=== PATIENT | female | born 1995 | race Caucasian/White ===

== ENCOUNTER 2020-10-29 08:36 | Outpatient (CLI) | payer SELFPAY | END 2020-10-29 08:37 | disposition home or self-care (01) | LOC: CHSLAB 08:38 | PROVIDERS: PCP Family Medicine; Visit Provider Obstetrics & Gynecology | DX: N91.2 Amenorrhea, unspecified (principal) | CPT/HCPCS: 36415; 84702 ==

== ENCOUNTER 2020-10-31 07:53 | Outpatient (CLI) | payer SELFPAY | END 2020-10-31 07:54 | disposition home or self-care (01) | LOC: CHSLAB 07:55 | PROVIDERS: PCP Family Medicine; Visit Provider Obstetrics & Gynecology | DX: N91.2 Amenorrhea, unspecified (principal); Z32.01 Encounter for pregnancy test, result positive | CPT/HCPCS: 36415; 84702 ==

== ENCOUNTER 2020-11-03 07:41 | Outpatient (CLI) | payer SELFPAY | END 2020-11-03 07:42 | disposition home or self-care (01) | PROVIDERS: PCP Family Medicine; Visit Provider Obstetrics & Gynecology | DX: N91.2 Amenorrhea, unspecified (principal); Z32.01 Encounter for pregnancy test, result positive | CPT/HCPCS: 36415; 84702 ==

== ENCOUNTER 2020-11-05 08:24 | Outpatient (CLI) | payer SELFPAY | END 2020-11-05 08:25 | disposition home or self-care (01) | LOC: CHSLAB 08:24 | PROVIDERS: PCP Family Medicine; Visit Provider Obstetrics & Gynecology | DX: Z32.01 Encounter for pregnancy test, result positive (principal) | CPT/HCPCS: 36415; 84702 ==

== ENCOUNTER 2021-04-09 08:07 | Outpatient (CLI) | payer SELFPAY ==
[2021-04-09 09:27] LABS: Basophils Absolute Auto 0.04 K/mm3 (0.00-0.10); Basophils Percent Auto 0.3 % (0.0-1.0); Eosinophils Absolute Auto 0.07 K/mm3 (0.02-0.50); Eosinophils Percent Auto 0.6 % (1.0-6.0); Hematocrit 36.1 % (35.0-49.0); Hemoglobin 11.9 g/dL (12.0-15.0); Immature Granulocyte Absolute 0.14 K/mm3 (0.00-0.00); Immature Granulocyte Percent A 1.2 % (0.0-0.0); Lymphocytes Absolute Auto 1.84 K/mm3 (1.10-4.50); Lymphocytes Percent Auto 15.4 % (18.0-42.0); Mean Corpuscular Hemoglobin 26.7 pg (27.0-31.0); Mean Corpuscular Volume 81.1 fL (78.0-102.0); Mean Platelet Volume 10.2 fl (9.2-11.8); Monocytes Absolute Auto 0.51 K/mm3 (0.10-0.90); Monocytes Percent Auto 4.3 % (2.0-11.0); Neutrophils Absolute Auto 9.4 K/mm3 (1.7-7.2); Neutrophils Percent Auto 78.2 % (50.0-70.0); Platelet Count Result 330 K/mm3 (150-420); Red Blood Count 4.45 M/mm3 (4.20-5.40); Red Cell Distribution Width 13.4 % (11.6-14.4)
[2021-04-09 09:59] LABS: HIV 1 P24 AG Negative (Negative); HIV 1/2 AB Negative (Negative)
[2021-04-09 11:58] LABS: Glucose 1 Hour PP 50gm Dose 172 mg/dL (70-130)
[2021-04-12 22:31] LABS: Treponema pallidum Ab FTA ABS Nonreactive (Nonreactive)
== END 2021-04-09 08:08 | disposition home or self-care (01) ==
LOC: CHSLAB 08:09
PROVIDERS: PCP Family Medicine; Visit Provider Advanced Practice Midwife
DX: Z36.9 Encounter for antenatal screening, unspecified (principal)
CPT/HCPCS: 36415; 82947; 85025; 86703; 86780; 86850; 86900; 86901

== ENCOUNTER 2021-04-14 07:19 | Outpatient (CLI) | payer SELFPAY ==
[2021-04-14 07:56] LABS: Glucose Fasting Gestational 88 mg/dL (>/=95)
[2021-04-14 09:15] LABS: Glucose 1 Hour Gest 171 mg/dL (70-130)
[2021-04-14 10:01] LABS: Glucose 2 Hour Gest 138 mg/dL (<155)
[2021-04-14 10:45] LABS: Glucose 3 Hour Gest 127 mg/dL (>/=140)
== END 2021-04-14 07:20 | disposition home or self-care (01) ==
LOC: CHSLAB 07:21
PROVIDERS: PCP Family Medicine; Visit Provider Advanced Practice Midwife
DX: O99.810 Abnormal glucose complicating pregnancy (principal)
CPT/HCPCS: 36415; 82951; 82952

== ENCOUNTER 2023-02-16 15:27 | Emergency (ER) | payer OTHER, SELFPAY ==
--- NOTE | ~2023-02-16 | XR_ITS ---
EXAMINATION: XR foot LT min 3V DATE: 02/16/2023 INDICATION: Left foot pain TECHNIQUE: Dorsoplantar, lateral, and 2 oblique views of the left foot were obtained. COMPARISON: None. FINDINGS: A tiny osseous fragment projects distal to the medial malleolus. No acute fracture of the f oot is identified. Tiny posterior and plantar calcaneal enthesophytes are noted. IMPRESSION: 1. No acute osseous abnormality of the foot. 2. Tiny avulsion fracture at the distal aspect of the medial malleolus. Reviewed, dictated and finalized at location A.
--- NOTE | ~2023-02-16 | XR_ITS ---
EXAMINATION: XR ankle LT min 3V DATE: 02/16/2023 INDICATION: Left ankle pain TECHNIQUE: Anteroposterior, lateral, mortise, and additional oblique view of the ankle were obtained. COMPARISON: None. FINDINGS: There is an acute, traumatic, closed, transverse avulsion fracture in the distal aspect of the medial malleolus. No additional fracture is identified. The ankle mortise is intact. There is ank le soft tissue swelling. IMPRESSION: 1. Avulsion fracture of the medial malleolus. Reviewed, dictated and finalized at location A.
== END 2023-02-16 16:54 | disposition home or self-care (01) ==
PROVIDERS: Emergency Provider Internal Medicine Critical Care Medicine; PCP Family Medicine
DX: S82.52XA Displaced fracture of medial malleolus of left tibia, initial encounter for closed fracture (principal); S93.402A Sprain of unspecified ligament of left ankle, initial encounter; X50.0XXA Overexertion from strenuous movement or load, initial encounter
CPT/HCPCS: 29515; 73610; 73630; 99284; L4350

== ENCOUNTER 2023-02-25 20:10 | Emergency (ER) | payer OTHER, SELFPAY ==
--- NOTE | 2023-02-25 20:12 | ED.NAVMDI ---
HPI - Nausea/Vomiting/Diarrhea General Stated complaint: Calf Pain Time Seen by Provider: 02/25/23 20:11 Related Data Home Medications Medication Instructions Recorded Confirmed omeprazole 20 mg tablet,delayed 20 mg PO DAILY 09/30/20 release Allergies Allergy/AdvReac Type Severity Reaction Status Date / Time No Known Allergies Allergy Verified 02/25/23 20:12 [facility] Past Medical History Medical History Chronic gastroesophageal reflux disease Surgical History Surgical History H/O dilation and curettage Social History Social History Smoking status: Never smoker Discharge Plan Discharge Prescriptions: No Action omeprazole 20 mg tablet,delayed release (DR/EC) 20 mg PO DAILY cyclobenzaprine 10 mg tablet 10 mg PO TID Qty: 90 0RF sumatriptan succinate 50 mg tablet See Rx Instructions .ROUTE .COMPLEX Qty: 10 0RF Dose Instruction: TAKE 1 TAB BY MOUTH AT ONSET OF HEADACHE IF NO RELIEF MAY REPEAT IN 2 HOURS. MAX 4 TABS/24 HR Rx Instructions: TAKE 1 TAB BY MOUTH AT ONSET OF HEADACHE IF NO RELIEF MAY REPEAT IN 2 HOURS. MAX 4 TABS/24 HR amitriptyline 25 mg tablet See Rx Instructions .ROUTE .COMPLEX Qty: 90 0RF Dose Instruction: TAKE 1 TABLET BY MOUTH AT BEDTIME Rx Instructions: TAKE 1 TABLET BY MOUTH AT BEDTIME neomycin-polymyxin B-dexameth 3.5mg/mL-10,000 unit/mL-0.1 % drops,suspension 1 drp EACH EYE Q6H Qty: 5 0RF Follow-up/Referrals: Rakan Robert DO [Primary Care Provider] -
[2023-02-25 20:13] VITALS: BP 141/99; PULSE 94; RESP 18; TEMP 37.4; O2SAT 97
--- NOTE | 2023-02-25 20:28 | ED.EXTPRO ---
HPI - Extremity Problem General Chief complaint: Extremity Problem,Nontraumatic Stated complaint: Calf Pain Time Seen by Provider: 02/25/23 20:11 Source: patient and RN notes reviewed Mode of arrival: ambulatory ( with leg scooter) Limitations: no limitations History of Present Illness HPI Narrative: patient had an ankle fracture on the left several days ago then 3 days ago she began having some pain in her left calf. She is concerned about having a DVT and just wanted to get it checked out. MD Complaint: extremity pain Onset (ago): day(s) (3) Pain Consistency: constant Location: left and lower extremity Quality: aching and dull Radiation: none Relieving factors: rest Exacerbating factors: range of motion and palpation Associated symptoms: denies other symptoms Context: immobilization Related Data Home Medications Medication Instructions Recorded Confirmed omeprazole 20 mg tablet,delayed 20 mg PO DAILY 09/30/20 release Allergies Allergy/AdvReac Type Severity Reaction Status Date / Time No Known Allergies Allergy Verified 02/25/23 20:12 [facility] Past Medical History Medical History (Updated 02/25/23 @ 22:04 by Von Patino MD) Chronic gastroesophageal reflux disease GERD (gastroesophageal reflux disease) (09/09/15) Surgical History Surgical History H/O dilation and curettage Social History Social History Smoking status: Never smoker Exam Const: General: healthy appearing, no acute distress and alert Nutritional Appearance: well nourished Orientation/consciousness: patient oriented x3 Limitations: no limitations HENMT: Head: normal to inspection Ears: external ears normal Face/Nose/Sinus: Normal external nose present Face and sinus: normal facial exam Mouth: Yes moist mucous membranes Eyes: Conjunctivae: conjunctivae normal Pupils: Equal, round and reactive pupils present EOM: EOMs intact bilaterally Neck: Neck: normal visual inspection Resp: Effort & Inspection: normal respiratory effort Auscultation: clear to auscultation bilaterally Cardio: Rate: regular rate Rhythm: regular rhythm GI: GI Palp: Yes Soft to palpation and No Tenderness to palpation present (GI) Auscultation: normal bowel sounds Back/Spine/Pelvis: Cervical Spine: cervical ROM normal Thoracic/Lumbar Spine: thoraco-lumbar ROM normal Skin: General skin exam: normal color Rashes: no rashes Neuro: General: patient oriented x3, moves all extremities, no focal motor deficits and CN's II-XI intact bilaterally Speech: normal speech Extrem: General: normal exam except as noted and no clubbing, cyanosis or edema Left lower extremity: lower leg Details: tenderness Location: of the posterior calf; no erythema, no localized swelling, no palpable cords and no unusual warmth Psych: Mental Status: mental status grossly normal Affect: normal affect Attitude: cooperative Course Course Emergency Course: patient has an elevated D-dimer and some left leg calf tenderness. She has been immobile from a recent fracture. Her elevated D-dimer could be also due to her recent trauma which would cause it to be falsely elevated. I am going to give her a dose of Lovenox here in the ER and then she will get a venous Doppler of her leg tomorrow and contact her primary care physician for Eliquis if it is positive. Vital Signs Vital signs: Vital Signs Temperature 37.4 C 02/25/23 20:13 Pulse Rate 94 02/25/23 20:13 Respiratory Rate 18 02/25/23 20:13 Blood Pressure 141/99 H 02/25/23 20:13 Pulse Oximetry 97 02/25/23 20:13 Temperature 37.4 C 02/25/23 20:13 Pulse Rate 94 02/25/23 20:13 Respiratory Rate 18 02/25/23 20:13 Blood Pressure 141/99 H 02/25/23 20:13 Pulse Oximetry 97 02/25/23 20:13 MDM - Extremity (Nontraumatic) Differential Diagnosis Differential diagnosis: Likely cellulitis, superf
[2023-02-25 20:55] LABS: Basophils Absolute Auto 0.04 K/mm3 (0.00-0.10); Basophils Percent Auto 0.4 % (0.0-1.0); Eosinophils Absolute Auto 0.14 K/mm3 (0.02-0.50); Eosinophils Percent Auto 1.3 % (1.0-6.0); Hemoglobin 11.8 g/dL (12.0-15.0); Immature Granulocyte Absolute 0.02 K/mm3 (0.00-0.00); Immature Granulocyte Percent A 0.2 % (0.0-0.0); Lymphocytes Absolute Auto 3.05 K/mm3 (1.10-4.50); Lymphocytes Percent Auto 29.4 % (18.0-42.0); Mean Corpuscular HGB Conc 31.9 g/dL (32.0-36.0); Mean Corpuscular Hemoglobin 25.2 pg (27.0-31.0); Mean Corpuscular Volume 79.1 fL (78.0-102.0); Monocytes Absolute Auto 0.63 K/mm3 (0.10-0.90); Monocytes Percent Auto 6.1 % (2.0-11.0); Neutrophils Absolute Auto 6.5 K/mm3 (1.7-7.2); Neutrophils Percent Auto 62.6 % (50.0-70.0); Platelet Count Result 379 K/mm3 (150-420); Red Blood Count 4.68 M/mm3 (4.20-5.40); Red Cell Distribution Width 13.2 % (11.6-14.4); White Blood Count 10.4 K/mm3 (4.8-10.8)
[2023-02-25 21:08] LABS: INR 0.9; Partial Thromboplastin Time 30.3 SEC (23.90-30.70); Prothrombin Time 10.2 Seconds (9.50-12.10)
[2023-02-25] MEDS: ENOXAPARIN 100 MG/ML SYRINGE SUB-Q (22:17)
== END 2023-02-25 22:23 | disposition home or self-care (01) ==
PROVIDERS: Emergency Provider Emergency Medicine; PCP Family Medicine
DX: M79.605 Pain in left leg (principal)
CPT/HCPCS: 36415; 85025; 85380; 85610; 85730; 96372; 99283; J1650

== ENCOUNTER 2023-02-26 09:12 | Outpatient (CLI) | payer OTHER, SELFPAY ==
--- NOTE | ~2023-02-26 | US_ITS ---
US venous doppler [facility] DATE: 02/26/2023 09:40 INDICATION: Left leg pain. TECHNIQUE: Real-time and color flow imaging and Doppler analysis of the veins of the left lower ardon al body COMPARISON: None FINDINGS: The left greater saphenous vein is reportedly patent the technologist. There is spontaneous and phasic flow and normal augmentation and color flow signal of the left common femoral, femoral, p opliteal and posterior tibial veins. There is incomplete compression of left peroneal vein consistent with left peroneal deep venous throm bosis IMPRESSION: Left peroneal vein deep venous thrombosis Reviewed, dictated and finalized at Location [facility]. Reviewed, dictated and finalized at location A.
== END 2023-02-26 09:13 | disposition home or self-care (01) ==
PROVIDERS: PCP Family Medicine; Visit Provider Family Medicine
DX: I82.452 Acute embolism and thrombosis of left peroneal vein (principal)
CPT/HCPCS: 93971

== ENCOUNTER 2023-02-26 10:20 | Emergency (ER) | payer OTHER, SELFPAY ==
[2023-02-26 10:24] VITALS: BP 133/85; PULSE 99; RESP 16; TEMP 37.1; O2SAT 100
--- NOTE | 2023-02-26 10:51 | ED.EXTPRO ---
HPI - Extremity Problem General Chief complaint: Extremity Problem,Nontraumatic Stated complaint: L LEG +DVT Time Seen by Provider: 02/26/23 10:39 History of Present Illness HPI Narrative: 27-year-old female presents to the ER today for new diagnosis of left lower extremity DVT. She recently had an avulsion fracture and sprain of her left ankle. She noticed earlier this week that she was starting to get some pain in her left calf. She was seen in outside hospital emergency room yesterday evening and was noted to have an elevated dimer. She came to [place] this morning to have the venous Doppler study done and it was positive for DVT in the?Left peroneal vein. She does have a primary care provider that she will be able to follow-up with. Denies having any chest pain or shortness of breath. Related Data Home Medications Medication Instructions Recorded Confirmed omeprazole 20 mg tablet,delayed 20 mg PO DAILY 09/30/20 release Allergies Allergy/AdvReac Type Severity Reaction Status Date / Time No Known Allergies Allergy Verified 02/25/23 20:12 Review of Systems Review of Systems: CONSTITUTIONAL: Denies fever, chills, or sweats. EYES: Denies visual changes, redness, or discharge. ENT: Denies rhinorrhea, congestion, sore throat, or otalgia. CARDIOVASCULAR: Denies chest pain, palpitations, or edema. RESPIRATORY: Denies cough or dyspnea. GASTROINTESTINAL: Denies abdominal pain, nausea, vomiting, or diarrhea. GENITOURINARY: Denies dysuria or hematuria. SKIN: Denies rash or itching. MUSCULOSKELETAL: left calf pain NEUROLOGIC: Denies headache, numbness, dizziness, or weakness. PSYCHIATRIC: Denies anxiety or depression. PMFSH Past Medical History Medical History (Updated 02/26/23 @ 10:58 by Magalie Martinez APRN) Chronic gastroesophageal reflux disease GERD (gastroesophageal reflux disease) (09/09/15) Surgical History Surgical History H/O dilation and curettage Social History Social History Smoking status: Never smoker Exam Narrative: GENERAL: Well-appearing, well-nourished, and in no acute distress. HEAD: Normocephalic, atraumatic. EYES: PERRL NECK: Supple. No adenopathy or masses. No carotid bruits or JVD CHEST: Clear to auscultation. No respiratory distress. No wheezes rales or rhonchi HEART: Regular rate and rhythm. No murmur heard. Normal peripheral pulses. ABDOMEN: Soft, nontender, nondistended, normal active bowel sounds. EXTREMITIES: Normal range of motion. No edema. no erythema, left ankle splinted SKIN: Warm, dry, no rash. NEURO: No focal deficits. Alert and oriented x3. PSYCH: Normal mood and affect. Course Vital Signs Vital signs: Vital Signs Temperature 37.1 C 02/26/23 10:24 Pulse Rate 99 02/26/23 10:24 Respiratory Rate 16 02/26/23 10:24 Blood Pressure 133/85 02/26/23 10:24 Pulse Oximetry 100 02/26/23 10:24 Oxygen Delivery Room Air 02/26/23 10:24 Temperature 37.1 C 02/26/23 10:24 Pulse Rate 99 02/26/23 10:24 Respiratory Rate 16 02/26/23 10:24 Blood Pressure 133/85 02/26/23 10:24 Pulse Oximetry 100 02/26/23 10:24 Oxygen Delivery Room Air 02/26/23 10:24 MDM - Extremity (Nontraumatic) MDM Narrative Medical decision making narrative: Will start patient on oral eliquis. Risks/benefits discussed. She agrees to follow up with primary care for ongoing management of DVT. Discharge Plan Discharge Clinical Impression: Acute deep vein thrombosis (DVT) of left peroneal vein Patient Disposition: Home, Self-Care Condition: Stable Instructions: Antibiotic Form, Deep Vein Thrombosis (ED) Prescriptions: New apixaban 5 mg (74 tabs) tablets,dose pack See Rx Instructions .ROUTE .COMPLEX Qty: 74 0RF Rx Instructions: orally per package directions No Action omeprazole 20 mg tablet,delayed release
== END 2023-02-26 12:06 | disposition home or self-care (01) ==
PROVIDERS: Emergency Provider Nurse Practitioner Family; PCP Family Medicine
DX: I82.452 Acute embolism and thrombosis of left peroneal vein (principal); K21.9 Gastro-esophageal reflux disease without esophagitis
CPT/HCPCS: 93971; 99283

== ENCOUNTER 2023-04-21 11:31 | Outpatient (CLI) | payer OTHER, SELFPAY ==
[2023-04-21 12:18] LABS: Cholesterol 142 mg/dL (0-200); HDL Direct 41 mg/dL (40-60); LDL Cholesterol Calculated 86 mg/dL (<130); Triglycerides 77 mg/dL (0-150)
== END 2023-04-21 11:32 | disposition home or self-care (01) ==
LOC: CHSLAB 11:33
PROVIDERS: PCP Family Medicine; Visit Provider Family Medicine
DX: Z00.00 Encounter for general adult medical examination without abnormal findings (principal)
CPT/HCPCS: 36415; 80061

== ENCOUNTER 2023-08-03 12:46 | Outpatient (CLI) | payer OTHER, SELFPAY | END 2023-08-03 12:47 | disposition home or self-care (01) | LOC: CHSLAB 12:51 | PROVIDERS: PCP Family Medicine | DX: Z32.01 Encounter for pregnancy test, result positive (principal) | CPT/HCPCS: 36415; 84702 ==

== ENCOUNTER 2023-09-06 12:48 | Outpatient (CLI) | payer OTHER, SELFPAY ==
[2023-09-06 14:23] LABS: Basophils Absolute Auto 0.04 K/mm3 (0.00-0.10); Basophils Percent Auto 0.3 % (0.0-1.0); Eosinophils Absolute Auto 0.05 K/mm3 (0.02-0.50); Eosinophils Percent Auto 0.4 % (1.0-6.0); Hematocrit 36.8 % (35.0-49.0); Hemoglobin 12.5 g/dL (12.0-15.0); Immature Granulocyte Absolute 0.03 K/mm3 (0.00-0.00); Immature Granulocyte Percent A 0.3 % (0.0-0.0); Lymphocytes Absolute Auto 1.56 K/mm3 (1.10-4.50); Lymphocytes Percent Auto 13.2 % (18.0-42.0); Mean Corpuscular Hemoglobin 27.2 pg (27.0-31.0); Mean Platelet Volume 10.4 fl (9.2-11.8); Monocytes Absolute Auto 0.46 K/mm3 (0.10-0.90); Monocytes Percent Auto 3.9 % (2.0-11.0); Neutrophils Absolute Auto 9.7 K/mm3 (1.7-7.2); Neutrophils Percent Auto 81.9 % (50.0-70.0); Platelet Count Result 386 K/mm3 (150-420); Red Cell Distribution Width 14.3 % (11.6-14.4); White Blood Count 11.8 K/mm3 (4.8-10.8)
[2023-09-06 14:31] LABS: Hemoglobin A1C 5.5 % (<5.7)
[2023-09-06 15:04] LABS: Glucose 1 Hour PP 50gm Dose 137 mg/dL (70-130)
[2023-09-06 15:18] LABS: HIV 1 P24 AG Negative (Negative); HIV 1/2 AB Negative (Negative)
[2023-09-08 14:13] LABS: Hepatitis B Surface Antigen Nonreactive (Nonreactive); Hepatitis C Virus Antibody Nonreactive
[2023-09-08 15:46] LABS: Rubella IgG Antibody 1.95 Index
[2023-09-08 16:32] LABS: RPR Screen Non-Reactive (Non-Reactive)
== END 2023-09-06 12:49 | disposition home or self-care (01) ==
LOC: CHSLAB 12:52
PROVIDERS: PCP Family Medicine; Visit Provider Advanced Practice Midwife
DX: Z36.89 Encounter for other specified antenatal screening (principal)
CPT/HCPCS: 36415; 82947; 83036; 85025; 86592; 86706; 86762; 86803; 86850; 86900; 86901; 87340; 87806

== ENCOUNTER 2023-09-14 08:36 | Outpatient (CLI) | payer OTHER, SELFPAY ==
[2023-09-14 09:30] LABS: Glucose Fasting Gestational 110 mg/dL (>/=95)
[2023-09-14 10:21] LABS: Glucose 1 Hour Gest 224 mg/dL (70-130)
[2023-09-14 11:22] LABS: Glucose 2 Hour Gest 188 mg/dL (<155)
[2023-09-14 12:20] LABS: Glucose 3 Hour Gest 116 mg/dL (>/=140)
== END 2023-09-14 08:37 | disposition home or self-care (01) ==
PROVIDERS: Obstetrics & Gynecology; PCP Family Medicine; Visit Provider Advanced Practice Midwife
DX: R73.09 Other abnormal glucose (principal)
CPT/HCPCS: 36415; 82951; 82952

== ENCOUNTER 2023-11-09 13:24 | Outpatient (CLI) | payer OTHER, SELFPAY ==
[2023-11-13 07:39] LABS: Hexagonal Phase Confirm Negative (Negative); Lupus dRVVT Screen 40 sec (<=45); PTT-LA Screen 44 sec (<=40)
[2023-11-14 15:23] LABS: Anti Cardio Antibody IgM <2.0 MPL-U/mL (<20.0); Anti Cardiolipin Antibody IgA <2.0 APL-U/mL (<20.0); Anti Cardiolipin Antibody IgG <2.0 GPL-U/mL (<20.0)
[2023-11-16 02:47] LABS: Factor V (Leiden) Mutation NEGATIVE
== END 2023-11-09 13:25 | disposition home or self-care (01) ==
LOC: CHSLAB 13:27
PROVIDERS: PCP Family Medicine; Visit Provider Obstetrics & Gynecology
DX: Z34.90 Encounter for supervision of normal pregnancy, unspecified, unspecified trimester (principal); I82.409 Acute embolism and thrombosis of unspecified deep veins of unspecified lower extremity
CPT/HCPCS: 36415; 81240; 81241; 85598; 85613; 85730; 86146; 86147

== ENCOUNTER 2024-02-17 13:06 | Outpatient (CLI) | payer OTHER, SELFPAY ==
[2024-02-17 13:30] LABS: Basophils Absolute Auto 0.02 K/mm3 (0.00-0.10); Basophils Percent Auto 0.2 % (0.0-1.0); Eosinophils Absolute Auto 0.05 K/mm3 (0.02-0.50); Eosinophils Percent Auto 0.4 % (1.0-6.0); Hematocrit 31.7 % (35.0-49.0); Hemoglobin 10.4 g/dL (12.0-15.0); Immature Granulocyte Absolute 0.11 K/mm3 (0.00-0.00); Immature Granulocyte Percent A 0.9 % (0.0-0.0); Lymphocytes Absolute Auto 1.82 K/mm3 (1.10-4.50); Mean Corpuscular HGB Conc 32.8 g/dL (32-36); Mean Corpuscular Hemoglobin 25.6 pg (27.0-31.0); Mean Corpuscular Volume 77.9 fL (78.0-102.0); Mean Platelet Volume 10.3 fl (9.2-11.8); Monocytes Absolute Auto 0.72 K/mm3 (0.10-0.90); Monocytes Percent Auto 5.9 % (2.0-11.0); Neutrophils Absolute Auto 9.44 K/mm3 (1.70-7.20); Neutrophils Percent Auto 77.6 % (50.0-70.0); Platelet Count Result 364 K/mm3 (150-420); Red Blood Count 4.07 M/mm3 (4.20-5.40); Red Cell Distribution Width 14.1 % (11.6-14.4); White Blood Count 12.2 K/mm3 (4.8-10.8)
[2024-02-17 14:52] LABS: HIV 1 P24 AG Negative (Negative); HIV 1/2 AB Negative (Negative)
== END 2024-02-17 13:07 | disposition home or self-care (01) ==
LOC: CHSLAB 13:09
PROVIDERS: PCP Family Medicine; Visit Provider Advanced Practice Midwife
DX: Z36.9 Encounter for antenatal screening, unspecified (principal)
CPT/HCPCS: 36415; 85025; 86780; 86850; 87806

== ENCOUNTER 2024-04-20 08:55 | Outpatient (CLI) | payer OTHER, SELFPAY ==
[2024-04-20 10:08] LABS: Alanine Aminotransferase 46 U/L (14-59); Albumin Level 3.1 g/dL (3.4-5.0); Alkaline Phosphatase 91 U/L (46-116); Anion Gap 7 mmol/L (4-12); Aspartate Amino Transferase 26 U/L (15-37); Bilirubin,Total 0.3 mg/dL (0.00-1.00); Blood Urea Nitrogen 13 mg/dL (7-18); Carbon Dioxide 28 mmol/L (21-32); Chloride 105 mmol/L (98-108); Cholesterol 179 mg/dL (0-200); Estimated Glomerular Filt Rate > 60; Glucose 70 mg/dL (70-99); HDL Direct 61 mg/dL (40-60); LDL Cholesterol Calculated 108 mg/dL (<130); Osmolality Calculated 288 mOsm/kg (285-295); Sodium 140 mmol/L (136-145); Total Protein 6.1 g/dL (6.4-8.2); Triglycerides 49 mg/dL (0-150)
== END 2024-04-20 08:56 | disposition home or self-care (01) ==
LOC: CHSLAB 08:56
PROVIDERS: PCP Family Medicine; Visit Provider Family Medicine
DX: I82.409 Acute embolism and thrombosis of unspecified deep veins of unspecified lower extremity (principal)
CPT/HCPCS: 36415; 80053; 80061

== ENCOUNTER 2024-06-04 09:31 | Outpatient (CLI) | payer OTHER, SELFPAY ==
[2024-06-04 10:07] LABS: Glucose Fasting 99 mg/dL (70-99)
[2024-06-04 11:05] LABS: Glucose 1 Hour 153 mg/dL (<180)
[2024-06-04 12:26] LABS: Glucose 2 Hour 104 mg/dL (<155)
== END 2024-06-04 09:32 | disposition home or self-care (01) ==
PROVIDERS: PCP Family Medicine; Visit Provider Obstetrics & Gynecology
DX: Z86.32 Personal history of gestational diabetes (principal)
CPT/HCPCS: 36415; 82951